=== PATIENT | male | born 1970 | race Caucasian/White ===

== ENCOUNTER 2022-03-02 00:43 | Emergency (ER) | payer OTHER ==
[~2022-03-02] VITALS: Ht 177.8 cm; Wt 113.3 kg
--- NOTE | 2022-03-02 00:54 | ED Chest Pain ---
General Stated Complaint: SOB, CHEST TIGHTNESS History of Present Illness Date Seen by Provider: Mar 02, 2022 Time Seen by Provider: 00:49 Initial Comments 52-year-old male presents with some fast heartbeat, some chest tightness mild shortness of breath. Patient reports that his symptoms been going on all day. He denies any cough, shortness of breath, fever, chills. Patient reports a history of RA and takes hydroxychloroquine, Humira and amitriptyline. Patient reports that he presented tonight because of it "his " he denies any nausea, vomiting or other systemic complaints Allergies and Home Medications Allergies Coded Allergies: No Known Drug Allergies (Unverified , 03/02/22) Patient Home Medication List Home Medication List Reviewed: Yes Albuterol Sulfate (Ventolin Hfa) 1 Puff Puff, 2 PUFF INH Q4H PRN for SHORTNESS OF BREATH Prescribed by: LEVI JAY on 03/02/22215 Azithromycin (Azithromycin) 250 Mg Tablet, 250 MG PO UD Prescribed by: LEVI JAY on 03/02/22215 Review of Systems Review of Systems Constitutional: No chills, No fever Respiratory: Denies Cough; Shortness of Air Cardiovascular: See HPI, Chest Pain ( chest tightness); Denies Lightheadedness; Palpitations Gastrointestinal: Denies Abdominal Pain, Denies Diarrhea, Denies Nausea, Denies Vomiting Musculoskeletal: no symptoms reported Skin: no symptoms reported Psychiatric/Neurological: No Symptoms Reported Endocrine: No Symptoms Reported Hematologic/Lymphatic: No Symptoms Reported Physical Exam Vital Signs Vital Signs - First Documented 03/02/22 00:43 Temp 37.9 Pulse 129 Resp 22 B/P (MAP) 173/97 (122) Pulse Ox 97 O2 Delivery Room Air Capillary Refill : Height, Weight, BMI Height: '" Weight: lbs. oz. 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 as Tested Skin: Normal Color, Warm/Dry Progress/Results/Core Measures Results/Orders Lab Results Laboratory Tests Test 03/02/22 00:55 03/02/22 01:00 03/02/22 02:00 Range/Units White Blood Count 10.2 4.3-11.0 10^3/uL Red Blood Count 4.50 4.30-5.52 10^6/uL Hemoglobin 14.5 13.3-17.7 g/dL Hematocrit 43 40-54 % Mean Corpuscular Volume 94 80-99 fL Mean Corpuscular Hemoglobin 32 25-34 pg Mean Corpuscular Hemoglobin Concent 34 32-36 g/dL Red Cell Distribution Width 12.0 10.0-14.5 % Platelet Count 234 130-400 10^3/uL Mean Platelet Volume 9.3 9.0-12.2 fL Neutrophils (%) (Auto) 73 42-75 % Lymphocytes (%) (Auto) 15 12-44 % Monocytes (%) (Auto) 11 0-12 % Eosinophils (%) (Auto) 1 0-10 % Basophils (%) (Auto) 0 0-10 % Neutrophils # (Auto) 7.4 1.8-7.8 X 10^3 Lymphocytes # (Auto) 1.6 1.0-4.0 X 10^3 Monocytes # (Auto) 1.1 H 0.0-1.0 X 10^3 Eosinophils # (Auto) 0.1 0.0-0.3 10^3/uL Basophils # (Auto) 0.0 0.0-0.1 10^3/uL D-Dimer 0.24 0.00-0.49 UG/ML Sodium Level 133 L 135-145 MMOL/L Potassium Level 4.2 3.6-5.0 MMOL/L Chloride Level 100 98-107 MMOL/L Carbon Dioxide Level 23 21-32 MMOL/L Anion Gap 10 5-14 MMOL/L Blood Urea Nitrogen 11 7-18 MG/DL Creatinine 0.94 0.60-1.30 MG/DL Estimat Glomerular Filtration Rate 98 BUN/Creatinine Ratio 12 Glucose Level 135 H 70-105 MG/DL Calcium Level 9.2 8.5-10.1 MG/DL Corrected Calcium 9.0 8.5-10.1 MG/DL Magnesium Level 1.8 1.6-2.4 MG/DL Total Bilirubin 0.6 0.1-1.0 MG/DL Aspartate Amino Transf (AST/SGOT) 26 5-34 U/L Alanine Aminotransferase (ALT/SGPT) 44 0-55 U/L Alkaline Phosphatase 90 40-136 U/L Troponin I < 0.30 <0.30 NG/ML C-Reactive Protein 5.02 H <0.50 MG/DL Total Protein 7.9 6.4-8.2 GM/DL Albumin 4.3 3.2-4.5 GM/DL SARS-CoV-2 RNA (RT-PCR) Not Detected Not Detecte Urine Color YELLOW Urine Clarity CLEAR Urine pH 6.5 5-9 Urine Specific Peck 1.010 L 1.016-1.022 Urine Protein TRACE H NEGATIVE Urine Glucose (UA) NEGATIVE NEGATIVE Urine Ketones NEGATIVE NEGATIVE Urine Nitrite NEGATIVE NEGATIVE Urine Bilirubin NEGATIVE NEGATIVE Urine Urobilinogen 0.2 < = 1.0 MG/DL Urine Leukocyte Esterase NEGATIVE NEGATIVE Urine RBC (Auto) TRACE-I H NEGATIVE Urine RBC NONE /HPF Urine WBC 10-25 H /HPF Urine Squamous Epithelial Cells NONE /HPF Urine Crystals NONE /LPF Urine Bacteria TRACE /HPF Urine Casts NONE /LPF Urine Mucus MODERATE H /LPF Urine Culture Indicated YES My Orders Orders - JAY,LEVI L DO Cbc With Automated Diff (03/02/22 00:55) Comprehensive Metabolic Panel (03/02/22 00:55) Fibrin Degradation Products (03/02/22 00:55) Magnesium (03/02/22 00:55) Crp Fs (03/02/22 00:55) Troponin I Fs (03/02/22 00:55) Ekg Tracing (03/02/22 00:55) Monitor-Rhythm Ecg Trace Only (03/02/22 00:55) Chest 1 View Ap/Pa Only (03/02/22 00:55) Covid 19 Inhouse Test (03/02/22 00:55) Ns Iv 1000 Ml (Sodium Chloride 0.9%) (03/02/22 00:55) Ed Iv/Invasive Line Start (03/02/22 00:55) Ua Culture If Indicated (03/02/22 01:01) Acetaminophen Tablet (Tylenol Tablet) (03/02/22 01:01) Albuterol/Ipra Inhalation Soln (Duoneb I (03/02/22 01:45) Svn Small Volume Nebulizer (03/02/22 01:39) Dexamethasone Injection (Decadron Inje (03/02/22 02:15) Urine Culture (03/02/22 02:00) Medications Given in ED Current Medications Medications Dose Ordered Sig/Brigido Route Start Time Stop Time Status Last Admin Dose Admin Albuterol/ Ipratropium 3 ml ONCE ONCE INH 03/02/22 01:45 03/02/22 01:46 DC 03/02/22 01:54 3 ML Dexamethasone Sodium Phosphate 10 mg ONCE ONCE IV 03/02/22 02:15 03/02/22 02:16 DC 03/02/22 02:17 10 MG Vital Signs/I&O 03/02/22 00:43 Temp 37.9 Pulse 129 Resp 22 B/P (MAP) 173/97 (122) Pulse Ox 97 O2 Delivery Room Air Progress Progress Note : Progress Note Patient felt significant better following a DuoNeb treatment. I will prescribe him albuterol. He received 10 of Decadron IV in the ER. Patient will be prescribed azithromycin for questionable early pneumonia. Patient should follow with her primary care provider in a couple days for recheck of his symptoms and return to the ER as they worsen or any other needs. Patient stable and dischar [facility] home Initial ECG Impression Date: Mar 02, 2022 Initial ECG Impression Time: 00:54 Initial ECG Rate: 122 Initial ECG Rhythm: S.Tach Initial ECG Intervals: Normal Comment Sinus tach, no acute ST elevation or changes Diagnostic Imaging Diagonstic Imaging: Xray Plain Films/CT/US/NM/MRI: chest Comments Questionable infiltrate left lower lobe, bronchitis Departure Impression Primary Impression: Acute viral bronchitis Disposition: HOME, SELF-CARE Condition: Stable Departure-Patient Inst. Patient Instructions: Acute Bronchitis Add. Discharge Instructions: You may use the prescribed inhaler every 4 hours as needed to help with your chest tightness Follow-up with your primary care provider Friday or Friday for recheck Return to the ER as Scripts Doxycycline Hyclate (Doxycycline Hyclate) 100 Mg Tablet 100 MG PO BID, #20 TAB 0 Refills Prov: LEVI JAY DO 03/02/22 Albuterol Sulfate (VENTOLIN HFA) 1 Puff Puff 2 PUFF INH Q4H PRN for SHORTNESS OF BREATH, #1 EA 1 PUFF = 90 MCG Prov: JAY,LEVI L DO 03/02/22 LEVI JAY DO Mar 02, 2022 00:54
[2022-03-02] MEDS ORDERED: NS IV 1000 ML 1,000 ML IV STA (00:55)
[2022-03-02] MEDS ORDERED: ACETAMINOPHEN 500 MG TAB (TYLENOL) PO STA (01:01)
[2022-03-02 01:14] LABS: BASOPHILS % (AUTO) 0 % (0-10); EOSINOPHILS # (AUTO) 0.1 10^3/uL (0.0-0.3); EOSINOPHILS % (AUTO) 1 % (0-10); HEMATOCRIT 43 % (40-54); HEMOGLOBIN 14.5 g/dL (13.3-17.7); LYMPHOCYTES # (AUTO) 1.6 X 10^3 (1.0-4.0); LYMPHOCYTES % (AUTO) 15 % (12-44); MEAN CORPUSCULAR HEMOGLOBIN 32 pg (25-34); MEAN CORPUSCULAR HGB CONC 34 g/dL (32-36); MEAN CORPUSCULAR VOLUME 94 fL (80-99); MEAN PLATELET VOLUME 9.3 fL (9.0-12.2); MONOCYTES # (AUTO) 1.1 X 10^3 (0.0-1.0); MONOCYTES % (AUTO) 11 % (0-12); NEUTROPHILS # (AUTO) 7.4 X 10^3 (1.8-7.8); NEUTROPHILS % (AUTO) 73 % (42-75); PLATELET COUNT 234 10^3/uL (130-400); WHITE BLOOD COUNT 10.2 10^3/uL (4.3-11.0)
[2022-03-02 01:30] LABS: SODIUM 133 MMOL/L (135-145)
[2022-03-02 01:31] LABS: ALANINE AMINOTRANSFERASE 44 U/L (0-55); ALBUMIN 4.3 GM/DL (3.2-4.5); ALKALINE PHOSPHATASE 90 U/L (40-136); BILIRUBIN,TOTAL 0.6 MG/DL (0.1-1.0); BUN/CREATININE RATIO 12; CALCIUM 9.2 MG/DL (8.5-10.1); CARBON DIOXIDE 23 MMOL/L (21-32); CHLORIDE 100 MMOL/L (98-107); CREATININE SERUM 0.94 MG/DL (0.60-1.30); GFR ESTIMATED 98; GLUCOSE 135 MG/DL (70-105); MAGNESIUM 1.8 MG/DL (1.6-2.4); POTASSIUM 4.2 MMOL/L (3.6-5.0); TOTAL PROTEIN 7.9 GM/DL (6.4-8.2)
[2022-03-02] MEDS ORDERED: RT-ALBUTEROL/IPRATROPIUM 3 ML (DUONEB) VIAL INH ONE (01:45)
[2022-03-02] MEDS ORDERED: AZIT250T12 PO (02:16)
[2022-03-02] MEDS ORDERED: RT-ALBUINH INH (02:16)
[2022-03-02 02:23] LABS: BACTERIA,URINE TRACE /HPF; BILIRUBIN,URINE NEGATIVE (NEGATIVE); CLARITY,URINE CLEAR; COLOR,URINE YELLOW; GLUCOSE, URINE (UA) NEGATIVE (NEGATIVE); KETONES,URINE NEGATIVE (NEGATIVE); LEUKOCYTE ESTERASE ,URINE NEGATIVE (NEGATIVE); NITRITE,URINE NEGATIVE (NEGATIVE); PH,URINE 6.5 (5-9); PROTEIN,URINE TRACE (NEGATIVE)
[2022-03-02] MEDS ORDERED: DOXY100T2 PO (02:26)
[2022-03-02 02:30] VITALS: BP 156/67
--- NOTE | 2022-03-02 06:58 | Diagnostic Imaging Report ---
INDICATION: Shortness of breath. No prior examinations are available for comparison. FINDINGS: The heart size, mediastinal configuration, and pulmonary vascularity are within normal limits. There is no pleural effusion, pneumothorax, or pneumonia. The osseous structures are unremarkable. IMPRESSION: No acute cardiopulmonary abnormality. Dictated by: Dictated on workstation # [id number]
== END 2022-03-02 02:30 | disposition home or self-care (01) ==
LOC: ER FS 00:48
DX: J20.8 Acute bronchitis due to other specified organisms (principal); M06.9 Rheumatoid arthritis, unspecified; Z20.822 Contact with and (suspected) exposure to COVID-19; Z28.310 Unvaccinated for COVID-19; Z79.899 Other long term (current) drug therapy
CPT/HCPCS: 36415; 71045; 80053; 81000; 83735; 84484; 85025; 85379; 86141; 87088; 87636; 93005; 93041